=== PATIENT | male | born 1965 | race Two or more races ===

== ENCOUNTER 2022-03-26 13:53 | Emergency (ER) | payer MEDICAID, OTHER ==
[~2022-03-26] VITALS: Ht 167.6 cm; Wt 88.5 kg
[2022-03-26 15:30] VITALS: BP 137/83
[2022-03-26] MEDS ORDERED: KETOROLAC TROMETH 60MG/2ML VIAL IM ONE (15:45)
[2022-03-26] MEDS ORDERED: IBUP800T27 PO (16:52)
[2022-03-26] MEDS ORDERED: AMOX-277 PO (16:52)
== END 2022-03-26 16:56 | disposition home or self-care (01) ==
LOC: ER 13:53
DX: G44.209 Tension-type headache, unspecified, not intractable (principal); H66.92 Otitis media, unspecified, left ear
CPT/HCPCS: 70450; 96372; 99284; J1885